=== PATIENT | female | born 1945 | race Caucasian/White ===

== ENCOUNTER 2022-12-16 21:02 | Emergency (ER) | payer MEDICARE, OTHER ==
[~2022-12-16] VITALS: Ht 170.2 cm; Wt 97.0 kg
[2022-12-16] MEDS ORDERED: LOSARTAN-HCTZ1 EAC2 PO (21:10)
[2022-12-16] MEDS ORDERED: ROSUVASTATIN CA20 MG PO ×2 (21:10→21:12)
[2022-12-16] MEDS ORDERED: CARVEDILOL12.5 MG PO (21:10)
[2022-12-16] MEDS ORDERED: VENLAFAXINE HC150 MG PO (21:10)
[2022-12-16] MEDS ORDERED: GABAPENTIN300 MG PO (21:11)
[2022-12-16 21:13] LABS: BASOPHILS 0.9 % (0-2); EOSINOPHILS 0.1 % (0-6); HEMATOCRIT 39.4 % (35.0-50.0); HEMOGLOBIN 13.3 g/dL (12.0-18.0); LYMPHOCYTES 32.5 % (24-44); MCH 29.4 (27-36); MCHC 33.7 g/dl (30-36); MCV 87.2 fl (81-99); MONOCYTES 16.7 % (0-12); NEUTROPHILS 49.8 % (39-80); PLATELET COUNT 243 K/uL (140-440); RBC 4.51 M/ul (4.3-5.7); RDW 12.6 (10.5-15.0)
[2022-12-16] MEDS ORDERED: ASPIRIN REGIMEN81 MG PO (21:13)
[2022-12-16 21:23] LABS: INR 0.98 (0.80-1.30); PROTIME 12.5 Sec (11.2-14.2)
[2022-12-16 21:31] LABS: ALBUMIN 4.2 g/dL (3.4-5.0); ANION GAP 14.2 (7-21); BILIRUBIN, TOTAL 0.6 ng/dL (0.2-1.0); BUN/CREATININE RATIO 12.63 (6.0-28.6); CALCIUM 9.5 mg/dL (8.5-10.1); CREATININE, SERUM 0.95 mg/dL (0.55-1.02); POTASSIUM 3.2 mmol/L (3.5-5.1); PROTEIN, TOTAL 8.4 g/dL (6.4-8.2)
[2022-12-16 22:10] LABS: INFLUENZA B NAA NEGATIVE (NEGATIVE); RESPIRATORY SYNCYTIAL VIR NAA NEGATIVE (NEGATIVE)
--- NOTE | 2022-12-17 06:27 | EKG ---
[facility] [address] [facility] [place], [place] [address] Signed Normal sinus rhythm Normal ECG When compared with ECG of 16-DEC-2022 20:57, (Unconfirmed) no longer bradycardic Confirmed by WALLACE TRACY MD ([id number]) on 12/17/2022 6:27:22 AM Electronically Signed By: WALLACE TRACY 12/17/22 0627 PATIENT NAME: ANGIE TANG IVONNE Electrocardiogram DATE OF : 49 PHYSICIAN: WALLACE TRACY REPORT #: [id number] REPORT IS CONFIDENTIAL AND NOT TO BE RELEASED WITHOUT AUTHORIZATION
--- NOTE | 2022-12-17 06:27 | EKG ---
[facility] [address] [facility] [place], [place] [address] Signed Sinus bradycardia Otherwise normal ECG No previous ECGs available Confirmed by WALLACE TRACY MD ([id number]) on 12/17/2022 6:26:47 AM Electronically Signed By: WALLACE TRACY 12/17/22 0627 PATIENT NAME: ANGIE TANG Electrocardiogram DATE OF : 49 PHYSICIAN: WALLACE TRACY REPORT #: [id number] REPORT IS CONFIDENTIAL AND NOT TO BE RELEASED WITHOUT AUTHORIZATION
[2022-12-17 11:55] VITALS: BP 150/89
== END 2022-12-17 11:56 | disposition short-term general hospital (02) ==
LOC: ED 21:02
PROVIDERS: Family Medicine
DX: I21.4 Non-ST elevation (NSTEMI) myocardial infarction (principal); Z79.82 Long term (current) use of aspirin; Z79.899 Other long term (current) drug therapy; I10 Essential (primary) hypertension; Z11.52 Encounter for screening for COVID-19
CPT/HCPCS: 36415; 70450; 71045; 80053; 83735; 84484; 85025; 85379; 85610; 85730; 87502; 93005; 93010; 96374; 96375; 96376; 99285-25; A9270; C9803; J0360; J0780; J1644; J1790; J2405; U0002

== ENCOUNTER 2024-05-08 05:59 | Day surgery (SDC) | payer MEDICARE, OTHER ==
[2024-05-02 13:22] VITALS: BP 161/81
[~2024-05-08] VITALS: Ht 170.2 cm; Wt 84.1 kg
[~2024-05-08 05:59] MED LIST: ASPIRIN REGIMEN81 MG PO; CARVEDILOL12.5 MG PO; GABAPENTIN300 MG PO; K-TAB ER20 MEQ PO; LACTATED RINGER'S 1,000 ML IV SCH; LOSARTAN-HCTZ1 EAC2 PO; MULTI VITAMIN1 EACH PO; ROSUVASTATIN CA20 MG PO; VENLAFAXINE HC150 MG PO
[2024-05-08 06:12] VITALS: BP 141/75
[2024-05-08] MEDS ORDERED: fentaNYL citrate 100 MCG/2 ML VIAL ONE (06:48)
[2024-05-08] MEDS ORDERED: propofoL 200 MG/20 ML VIAL ONE ×2 (06:48→06:49)
[2024-05-08] MEDS ORDERED: DEXAMETHASONE SOD PHOS 4 MG/ML VIAL ONE (06:48)
[2024-05-08] MEDS ORDERED: FAMOTIDINE 20 MG/ 2 ML VIAL ONE (06:48)
[2024-05-08] MEDS ORDERED: ondansetron HCL 4 MG/2 ML VIAL ONE (06:48)
[2024-05-08] MEDS ORDERED: KETOROLAC TROMETHAMINE 30 MG/ML VIAL ONE (06:48)
[2024-05-08] MEDS ORDERED: MIDAZOLAM HCL 2 MG/2 ML VIAL ONE (06:48)
[2024-05-08] MEDS ORDERED: LACTATED RINGER'S 1,000 ML IV ONE (06:48)
[2024-05-08] MEDS ORDERED: METOCLOPRAMIDE HCL 10 MG/2 ML SDV ONE (06:48)
[2024-05-08] MEDS ORDERED: IBLOOD GLUCOSE TEST STRIP 1 EA TEST VI PRN ×2 (07:00→07:15)
[2024-05-08] MEDS ORDERED: CEFAZOLIN SODIUM 2 GM/20 ML SYR IV SCH (07:00)
[2024-05-08] MEDS ORDERED: HEParin SOD (PORCINE) 5,000 UNIT/ML SDV SUB-Q SCH (07:00)
[2024-05-08] MEDS ORDERED: LIDOCAINE HCL 1% 5 ML SDV INJ ONE (07:00)
[2024-05-08] MEDS ORDERED: droPERidol 5 MG/2 ML VIAL IV PRN (07:15)
[2024-05-08] MEDS ORDERED: NALOXONE HCL 0.4 MG SYR IV PRN ×2 (07:15→08:45)
[2024-05-08] MEDS ORDERED: fentaNYL citrate 50 MCG/ML SDV IV PRN (07:15)
[2024-05-08] MEDS ORDERED: PROCHLORPERAZINE EDISYLATE 10 MG/2 ML VIAL IV PRN (07:15)
[2024-05-08] MEDS ORDERED: MORPHINE SULFATE 10 MG/ML VIAL IV PRN (07:15)
[2024-05-08] MEDS ORDERED: METOCLOPRAMIDE HCL 10 MG/2 ML SDV IV PRN (07:15)
[2024-05-08] MEDS ORDERED: ondansetron HCL 4 MG/2 ML VIAL IV PRN ×2 (07:15→08:45)
--- NOTE | 2024-05-08 07:46 | NUR ---
PT NOT AVAILABLE FOR VISIT. PROVIDED PRAYER.
[2024-05-08] MEDS ORDERED: IBUPROFEN600 MG PO (08:43)
[2024-05-08] MEDS ORDERED: ACETAMINOPHEN500 MG PO (08:43)
[2024-05-08] MEDS ORDERED: OXYCODON-ACETA1 EAC2 PO (08:43)
--- NOTE | 2024-05-08 08:43 | NUR ---
05/08/24 0843 Sheets,Kirstin 0872 PT ARRIVED TO PACU ON 6L VIA MASK, PT WAKES EASILY AND IS REORIENTED TO PACU. PT DENIES PAIN AND NAUSEA. 0831 O2 REMOVED, PT REPORTS BEING DROWSY AND RESTING WITH EYES CLOSED. 0834 O2 DECREASED TO 88-89% WHILE ASLEEP, 2L NC PLACED AND DEEP BREATHING ENCOURAGED. O2 INCREASED TO MID TO HIGH 90S. PT RESTING AND WAKES OFF AND ON. PT REPORTS PAIN 3/10 AND TOLERBALE AT THIS TIME.
[2024-05-08] MEDS ORDERED: ACETAMINOPHEN 500 MG TAB PO PRN (08:45)
[2024-05-08] MEDS ORDERED: OXYCODONE/APAP 7.5/325 TAB PO PRN (08:45)
[2024-05-08] MEDS ORDERED: IBUPROFEN 600 MG TAB PO PRN (08:45)
[2024-05-08 08:55] VITALS: BP 127/71
--- NOTE | 2024-05-08 09:06 | NUR ---
0855-PT BACK TO ROOM FROM PACU ON 2L VIA NC. RECEIVED REPORT FROM KORIN BRUNSON. PT IS AWAKE. RESP EVEN AND UNLABORED. RATES PAIN 2/10, DENIES NAUSEA. PT DRINKING WATER. NO OTHER NEEDS AT THIS TIME. CALL LIGHT WITHIN REACH. 0905-TITRATED O2 OFF. O2 SATS 98-99% ON RA. CALL LIGHT WITHIN REACH.
[2024-05-08 09:54] VITALS: BP 124/82
--- NOTE | 2024-05-08 10:16 | NUR ---
0954-PT AWAKE. RESP EVEN AND UNLABOARED. RATES PAIN /. DENIES NAUSEA. PT IS READY TO GO HOME. 0957-PT GETTING DRESSED. CALL LIGTH WITHIN REACH. 1000-PT AMBULATES TO RESTROOM. GAIT STEADY AND TOLERATED WELL. PT VOIDS. 1005-PT BACK TO ROOM.
--- NOTE | 2024-05-08 10:17 | NUR ---
1010-WENT OVER DISHCARGE INSTRUCTIONS WITH PT. WENT OVER POSTOP MEDICATION. ALL QUESTIONS ANSWERED. WHEELCHAIR RIDE PROVIDED TO FRONT OF HOSPITAL WHERE DAUGHTER WAS WAITING WITH THE CAR.
--- NOTE | 2024-05-08 17:24 | OR ---
[facility] [address] [place], [place] [address] Signed DATE OF OPERATION: 05/08/2024 SURGEON: Joslyn Kenyon MD PREOPERATIVE DIAGNOSIS: Right lower outer mammographic abnormality; radial scar on biopsy. POSTOPERATIVE DIAGNOSIS: Right lower outer mammographic abnormality; radial scar on biopsy. PROCEDURE: Excision of right breast tissue, right lower outer breast with KATHARINA entry level manufacturing engineer localization. ANESTHESIA: General LMA; Joslyn Meza CRNA and local 10 mL of 0.25% Marcaine with epinephrine. INDICATION: This 79-year-old white woman is a patient of STEVE Oliveros. She was noted to have an abnormality on mammogram in the outer lower aspect of the right breast, which was lobulated. The lesion was 0.8 cm in size. An ultrasound-guided biopsy was performed on March 01, 2024, showing benign findings of usual ductal hyperplasia and a radial sclerosing lesion and fibrocystic changes. She has no palpable mass but does have family history of breast cancer in her mother. She is admitted at this time to undergo right breast biopsy by KATHARINA entry level manufacturing engineer localization, which is a standard approach for those with the radial scar diagnosis on the possibility of associated malignancy. The risk of bleeding, infection, cosmetic deformity, need for additional treatment (extensively explained already) were reviewed in detail. She understands and wished to proceed. FINDINGS: There was bruising in the outer aspect of the right breast. There remained no palpable mass. Good signal with the KATHARINA entry level manufacturing engineer probe was noted. A circumareolar incision was used to provide optimal cosmesis. Excision of the mass proceeded without difficulty and the specimen radiograph confirmed the KATHARINA entry level manufacturing engineer implement and localizing clip to be in the center portion of the specimen. DESCRIPTION OF PROCEDURE: The patient was brought to the operating room and given a general LMA type anesthetic. The KATHARINA entry level manufacturing engineer implement had been localized in the preop area assuring good function of the machine. After satisfactory general LMA anesthesia, breast was prepared with chlorhexidine based solution and draped sterilely. Application of the KATHARINA entry level manufacturing engineer probe Electronically Signed By: JOSLYN KENYON MD 05/08/24 1724 PATIENT NAME: ANGIE TANG OPERATIVE REPORT DATE OF : 49 REPORT #: [id number] PHYSICIAN: JOSLYN KENYON MD PCP: CALVIN QUARLES REPORT IS CONFIDENTIAL AND NOT TO BE RELEASED WITHOUT AUTHORIZATION [facility] [address] [place] [address] Signed to the breast showed its maximal uptake approximately 2 cm from the areolar margin. So as to preserve cosmesis, a circumareolar incision was made in that area. Dissection was carried through the dermis with electrocautery after incision with a 15 blade. A flap was elevated inferior and lateral and using the KATHARINA entry level manufacturing engineer for localization. The appropriate breast parenchyma was identified more fully. Electrocautery was used to excise it widely. Once excised it was marked with a short stitch superior and a long stitch lateral and passed for specimen radiograph. Radiograph confirmed the localizing implement within the center portion of the excised breast tissue as was the tumor marker itself. The wound was closed in layers of 2-0 Vicryl and a running subcuticular 3-0 Vicryl for the skin after application of 10 mL of 0.25% Marcaine with epinephrine. Steri-Strips were applied as was an Acticoat dressing. The patient was ultimately extubated and transferred to recovery room in good condition having suffered no complications. Sponge, needle, and instrument counts were reported as correct x3. Joslyn Kenyon MD /YAYOL /[id number] cc: STEVE Oliveros Copies: CALVIN QUARLES ~ Electronically Signed By: JOSLYN KENYON MD 05/08/24 1724 PATIENT NAME: ANGIE TANG OPERATIVE REPORT DATE OF : 49 REPORT #: [id number] PHYSICIAN: JOSLYN KENYON MD PCP: CALVIN QUARLES REPORT IS CONFIDENTIAL AND NOT TO BE RELEASED WITHOUT AUTHORIZATION
--- NOTE | 2024-05-09 19:44 | EKG ---
[facility] [address] [facility] [place], [place] [address] Signed Normal sinus rhythm Normal ECG When compared with ECG of 17-DEC-2022 00:04, No significant change was found Confirmed by Merrick Galvan MD ([id number]) on 05/09/2024 7:44:02 PM Electronically Signed By: MERRICK GALVAN MD 05/09/241943 PATIENT NAME: ANGIE TANG Electrocardiogram DATE OF : 49 PHYSICIAN: MERRICK GALVAN MD REPORT #: [id number] REPORT IS CONFIDENTIAL AND NOT TO BE RELEASED WITHOUT AUTHORIZATION
--- NOTE | 2024-05-15 17:39 | PATH ---
[facility] [address] [place], [place] [address] Signed THIS IS AN ADDENDUM REPORT SPECIMEN(S): A RIGHT BREAST TISSUE SPECIMEN SOURCE: A. RIGHT BREAST TISSUE CLINICAL HISTORY: Abnormal breast tissue, right; radial scar of right breast. 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 See synoptic report INVASIVE CARCINOMA OF THE BREAST: Resection Applies To: A SPECIMEN Procedure: Excision (less than total mastectomy) Specimen Laterality: Right TUMOR Tumor Site: Not specified Histologic Type: Invasive carcinoma of no special type (ductal) Glandular (Acinar) / Tubular Differentiation: Score 1 Nuclear Pleomorphism: Score 1 Mitotic Rate: Score 1 Overall Grade: Grade 1 (scores of 3, 4 or 5) Tumor Size: Microinvasion only (less than or equal to 1 mm) Ductal Carcinoma In Situ (DCIS): Present Architectural Patterns: Cribriform, Papillary Nuclear Grade: Grade I (low) Lymphatic and / or Vascular Invasion: Not identified Dermal Lymphatic and / or Vascular Invasion: Not identified Microcalcifications: Present in DCIS, Present in non-neoplastic tissue Treatment Effect in the Breast: No known presurgical therapy MARGINS Margin Status for Invasive Carcinoma: All margins negative for invasive carcinoma Distance from Invasive Carcinoma to Closest Margin: 8 mm Closest Margin(s) to Invasive Carcinoma: Anterior Margin Status for DCIS: All margins negative for DCIS PATIENT NAME: ANGIE TANG PATHOLOGY DATE OF : 49 REPORT #: [id number] PHYSICIAN: HUSSEIN LÓPEZ PCP: CALVIN QUARLES REPORT IS CONFIDENTIAL AND NOT TO BE RELEASED WITHOUT AUTHORIZATION [facility] [address] [place], [place] [address] Signed Distance from DCIS to Closest Margin: 1 mm Closest Margin(s) to DCIS: Anterior REGIONAL LYMPH NODES Regional Lymph Node Status: Not applicable (no regional lymph nodes submitted or found) pTNM CLASSIFICATION (AJCC 8th Edition) pT Category: pT1mi pN Category: pN not assigned (no nodes submitted or found) ADDITIONAL FINDINGS Additional Findings: - 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 - Usual ductal hyperplasia. - Fibrocystic changes. Ancillary studies: Pending ER/AZ and HER2/ghanshyam by IHC COMMENT: As part of our quality control manager program, this case is reviewed by another staff member. NA MICROSCOPIC EXAMINATION: Histologic sections of all submitted blocks are examined by light microscopy. These findings, together with the gross examination, support the pathologic diagnosis. Immunohistochemical stains are performed (with valid controls) and show the following results: - SMMHC (blocks A13): Highlights myoepithelial layer around benign glands and areas of DCIS, negative in area of invasive carcinoma. - CK5/CK6 /multiplex stain (blocks A7, A8, A11, A13): Highlights epithelium, negative in areas of DCIS. - ER (blocks A8, A11, A13): Strong staining in areas of DCIS. The staining pattern supports the diagnosis. GROSS DESCRIPTION: The specimen, labeled and designated "Chrissy, S, " and designated on the requisition "right breast tissue," is received in formalin and consists of 22 gram oriented portion of yellow-porter fibroadipose tissue that is 6.6 x 4.3 x 2.1 cm. A short suture is present and identifies the superior margin; a long suture identifies the lateral margin. The specimen is inked as follows: superior - blue; inferior - green; medial - red; lateral - orange; anterior - yellow; and PATIENT NAME: ANGIE TANG PATHOLOGY DATE OF : 49 REPORT #: [id number] PHYSICIAN: HUSSEIN LÓPEZ PCP: CALVIN QUARLES REPORT IS CONFIDENTIAL AND NOT TO BE RELEASED WITHOUT AUTHORIZATION [facility] [address] [place], [place] [address] Signed posterior - black. The specimen is serially sectioned from medial to lateral into 13 slices revealing a metallic commercial insurance underwriter detector and biopsy clip in slices six and seven surrounded by pink-white rubbery fibrous tissue. Present in slices 9-11 is a pink-porter white firm indurated ill-defined area that is 1.2 x 0.8 x 0.7 cm. The indurated area is from the clips by slice eight and is 0.2 cm from the anterior soft tissue margin, 0.9 cm from the posterior soft tissue margin, 1.0 cm from the superior soft tissue margin, 1.2 cm from the inferior soft tissue margin, 2.3 cm from the medial soft tissue margin, and 1.1 cm from the lateral soft tissue margin. Approximately 90% of the remaining specimen is a yellow-porter greasy adipose tissue and 10% is a white-porter rubbery fibrous tissue. A discrete mass lesion is not gross identified. Groutman sections are submitted in 15 cassettes. 05/09/2024: A coil biopsy clip was located in cassette A6 during microtomy. Cassette Summary: (A1-A2) slice one, medial soft tissue resection margin, perpendicular (A3-A4) slice six with commercial insurance underwriter detector (A5-A6) slice seven with biopsy clip (A7-A8) slice eight (A9-A10) slice nine with area of induration (A11-A12) slice 10 with area of induration (A13-A14) slice 11 with area of induration (A15) slice 13, lateral soft tissue resection margin, perpendicular Time of collection: 8:05 AM May 08, 2024. Time into formalin: 8:14 AM May 08, 2024. Processor load time: 9 AM May 09, 2024. Ischemic time: 9 minutes Total fixation time in formalin: 24 hours 46 minutes The ASCO/CAP guidelines related to HER2 and hormone receptor testing in breast specimens have been met and the specimen has been placed in formalin within one hour and fixed in 10% neutral buffered formalin for 6 to 72 hours. FB (under the direct supervision of a pathologist) The Gross Description was prepared using a voice recognition system. The report was reviewed for accuracy; however, sound-alike word errors, addition and/or deletions may occur. If there is any question about this report, please contact Client Services. ADDITIONAL NOTES: PATIENT NAME: ANGIE TANG PATHOLOGY DATE OF : 49 REPORT #: [id number] PHYSICIAN: HUSSEIN LÓPEZ PCP: CALVIN QUARLES REPORT IS CONFIDENTIAL AND NOT TO BE RELEASED WITHOUT AUTHORIZATION [address] [address] Signed Immunohistochemical and/or in situ hybridization studies if performed in this case included appropriate positive controls that reacted as expected. This test was developed and its performance characteristics determined by [facility]. It has not been cleared or approved by the U.S. Food and Drug Administration. The FDA has determined that such clearance or approval is not necessary. This test is used for clinical purposes. It should not be regarded as investigational or for research. [facility] is certified under the Clinical Laboratory Improvement Amendments of 1988 (CLIA) as qualified to perform high complexity clinical laboratory testing. PERFORMING LABORATORY: Technical component was performed by [facility], [address] [place] [address] (CLIA# [id number]). Professional interpretation was performed by [facility] [place], [address] [place] [address] (CLIA#: [id number]). ADDITIONAL NOTES: Immunohistochemical and/or in situ hybridization studies if performed in this case included appropriate positive controls that reacted as expected. This test was developed and its performance characteristics determined by [facility]. It has not been cleared or approved by the U.S. Food and Drug Administration. The FDA has determined that such clearance or approval is not necessary. This test is used for clinical purposes. It should not be regarded as investigational or for research. [facility] is certified under the Clinical Laboratory Improvement Amendments of 1988 (CLIA) as qualified to perform high complexity clinical laboratory testing. Professional interpretation was performed by [facility], [address] [place] [address] (CLIA#: [id number]). REASON FOR ADDENDUM: To add additional tests results ADDENDUM PATHOLOGIC DIAGNOSIS: Breast Biomarker Reporting Template Applies To: A Test(s) Performed: Estrogen Receptor (ER) Status: Positive (greater than 10% of cells demonstrate nuclear positivity) Percentage of Cells with Nuclear Positivity: 91-100% PATIENT NAME: ANGIE TANG PATHOLOGY DATE OF : 49 REPORT #: [id number] PHYSICIAN: HUSSEIN PATHOLOGY PCP: CALVIN QUARLES REPORT IS CONFIDENTIAL AND NOT TO BE RELEASED WITHOUT AUTHORIZATION [facility] [address] [place], [place] [address] Signed Average Intensity of Staining: Strong Progesterone Receptor (PgR) Status: Positive Percentage of Cells with Nuclear Positivity: 91-100% Average Intensity of Staining: Strong HER2 by Immunohistochemistry: Negative (Score 1+) Cold Ischemia and Fixation Times: Meet requirements specified in latest version of the ASCO / CAP Guidelines Cold Ischemia Time (minutes): 9 min Fixation Time (hours): 24.46 hours Testing Performed on Block Number(s): A13 METHODS Fixative: Formalin NA Diagnostician: Bethel Costa MD Pathologist Electronically Signed 05/15/2024 Copies: ~ PATIENT NAME: ANGIE TANG PATHOLOGY DATE OF : 49 REPORT #: [id number] PHYSICIAN: HUSSEIN PATHOLOGY PCP: CALVIN QUARLES REPORT IS CONFIDENTIAL AND NOT TO BE RELEASED WITHOUT AUTHORIZATION
[2024-05-23] MEDS ORDERED: AMLODIPINE BES2.5 MG PO (14:18)
== END 2024-05-08 10:10 | disposition home or self-care (01) ==
LOC: DS 05:59
PROVIDERS: ATTEND Surgery
PROC: 0HB5XZZ Excision of Chest Skin, External Approach (ICD-10-PCS; principal; 2024-05-08 07:30)
DX: C50.511 Malignant neoplasm of lower-outer quadrant of right female breast (principal); N64.89 Other specified disorders of breast; I10 Essential (primary) hypertension; E78.5 Hyperlipidemia, unspecified; Z88.0 Allergy status to penicillin; Z79.899 Other long term (current) drug therapy
CPT/HCPCS: 00400; 88307; 88341; 88342; 88360; 93005; 93010; J0690; J1100; J1644; J1885; J2250; J2405; J2704; J2765; J3010; J7121

== ENCOUNTER 2024-05-24 11:54 | Day surgery (SDC) | payer MEDICARE, MEDICAID ==
[~2024-05-24] VITALS: Ht 170.2 cm; Wt 86.2 kg
[~2024-05-24 11:54] MED LIST changes: +ACETAMINOPHEN500 MG PO; +AMLODIPINE BES2.5 MG PO; +IBLOOD GLUCOSE TEST STRIP 1 EA TEST VI PRN; +IBUPROFEN600 MG PO; +LIDOCAINE HCL 1% 5 ML SDV INJ ONE; +MIDAZOLAM HCL 5 MG/5 ML VIAL IV PRN; +OXYCODON-ACETA1 EAC2 PO; +fentaNYL citrate 100 MCG/2 ML VIAL IV PRN
[2024-05-24 12:22] VITALS: BP 164/82
[2024-05-24] MEDS ORDERED: fentaNYL citrate 100 MCG/2 ML VIAL ONE (14:01)
[2024-05-24] MEDS ORDERED: MIDAZOLAM HCL 5 MG/5 ML VIAL ONE (14:01)
[2024-05-24 14:54] VITALS: BP 148/99
--- NOTE | 2024-05-24 15:43 | NUR ---
05/24/24 1543 Kirstin Sutton 1433 PT ARRIVED TO PACU ON 2L VIA NC, PT WAKES EASILY AND DENIES CONCERNS. VSS. 1443 PT ASLEEP AND MD AT BEDSIDE AND PT WAKES EASILY TO VERBAL STIMULI. 1446 HOB INCREASED AND PT SIPPING SODA. 1505 DC INSTRUCTIONS GIVEN, PT DRESSED HERSELF AND DAUGHTER CALLED FOR RIDE. PT DC WITH PAPERWORK AND ALL QUESTIONS ANSWERED.
--- NOTE | 2024-05-25 12:48 | OR ---
[facility] [address] [place], [place] [address] Signed DATE OF OPERATION: 05/24/2024 SURGEON: Joslyn Kenyon MD PREOPERATIVE DIAGNOSIS: Family history of colon cancer (father). POSTOPERATIVE DIAGNOSIS: Extensive sigmoid and left-sided diverticulosis and small polyp, left colon. PROCEDURE: Total colonoscopy to cecum with cold snare polypectomy x1. ANESTHESIA: Intravenous sedation, fentanyl 100 mcg and Versed 5 mg. INDICATION: This 79-year-old white woman is a patient of STEVE Oliveros. She has family history of colon cancer in her father and last underwent colonoscopy 11 years ago. She has no current symptoms of bleeding, diarrhea, or constipation. The patient recently underwent excision of ductal hyperplasia radial sclerosing lesion by ky for which the final pathology is pending and has recovered fully from that. She is now to undergo screening colonoscopy based on her family history of father with colon cancer. She understands the risk of bleeding, infection, and perforation related to colonoscopy and wished to proceed. FINDINGS: The prep was good. Complete colonoscopy was undertaken of the cecum with full intubation of the cecum. She had numerous diverticula of the sigmoid and left colon. Scattered diverticula elsewhere. There was a small sessile polyp in the left colon, probably 5 mm in size, which was excised with cold snare technique. It is uncertain if it was truly retrieved. The direct retrieval was not successful and it was likely removed from the filter device. DESCRIPTION OF PROCEDURE: The patient was brought to the endoscopy suite and placed in lateral decubitus position, given intravenous sedation to the point of slurred speech and nystagmus. Digital rectal examination was normal. Full cardiopulmonary monitoring was maintained. Digital rectal examination showed no sign of anorectal abnormality. Electronically Signed By: JOSLYN KENYON MD 05/25/24 1248 PATIENT NAME: ANGIE TANG OPERATIVE REPORT DATE OF : 49 REPORT #: [id number] PHYSICIAN: JOSLYN KENYON MD PCP: CALVIN FARRELL REPORT IS CONFIDENTIAL AND NOT TO BE RELEASED WITHOUT AUTHORIZATION [facility] [address] [place], [place] [address] Signed The Olympus video colonoscope was passed in the rectum and manipulated throughout the colon noting numerous diverticula. In the left colon, there was a small sessile polyp which was excised with cold snare technique. The specimen was not easily able to be removed as it fell off upon withdrawal of scope. Various attempts were made to find it once again. Irrigation was undertaken. It was suctioned free and ultimately was thought to have been retrieved from the filter device. The scope was advanced from the biopsy site ultimately to the cecum. The ileocecal valve and appendiceal orifice were normal. The scope was withdrawn from that site. Examination showed no sign of abnormality other than the diverticulosis and a left-sided biopsy site which was hemostatic. Further withdrawal showed no other abnormality other than internal hemorrhoids. The scope was removed and the patient taken to the recovery room in good condition. CONCLUDING DIAGNOSIS: Polyps x1 and diverticulosis. PLAN: Recommend repeat colonoscopy in 5 years and high-fiber diet generally. The patient will return to the ongoing care of primary provider, Calvin Frarell. Joslyn Kenyon MD JM/MODL /[id number] cc: STEVE Oliveros Copies: CALVIN FARRELL ~ Electronically Signed By: JOSLYN KENYON MD 05/25/24 1248 PATIENT NAME: ANGIE TANG OPERATIVE REPORT DATE OF : 49 REPORT #: [id number] PHYSICIAN: JOSLYN KENYON MD PCP: CALVIN FARRELL REPORT IS CONFIDENTIAL AND NOT TO BE RELEASED WITHOUT AUTHORIZATION
--- NOTE | 2024-05-28 14:32 | PATH ---
[facility] [address] [facility] [place], [place] [address] Signed SPECIMEN(S): A DESCENDING COLON POLYP SPECIMEN SOURCE: A. DESCENDING COLON POLYP CLINICAL HISTORY: Family history of colon cancer, diverticulosis, polyp FINAL PATHOLOGIC DIAGNOSIS: Colon, descending, polypectomy: - Tubular adenoma BRP MICROSCOPIC EXAMINATION: Histologic sections of all submitted blocks are examined by light microscopy. These findings, together with the gross examination, support the pathologic diagnosis. GROSS DESCRIPTION: The specimen, labeled and designated "Chrissy descending colon polyp," is received in formalin and consists of one porter soft tissue fragment, 0.3 cm. Entirely submitted in (A1). VB (under the direct supervision of a pathologist) The Gross Description was prepared using a voice recognition system. The report was reviewed for accuracy; however, sound-alike word errors, addition and/or deletions may occur. If there is any question about this report, please contact Client Services. ADDITIONAL NOTES: Immunohistochemical and/or in situ hybridization studies if performed in this case included appropriate positive controls that reacted as expected. This test was developed and its performance characteristics determined by [facility]. It has not been cleared or approved by the U.S. Food and Drug Administration. The FDA has determined that such clearance or approval is not necessary. This test is used for clinical purposes. It should not be regarded as investigational or for research. [facility] is certified under the Clinical Laboratory Improvement Amendments of 1988 (CLIA) as qualified to perform high complexity clinical laboratory testing. PATIENT NAME: ANGIE TANG PATHOLOGY DATE OF : 49 REPORT #: [id number] PHYSICIAN: HUSSEIN LÓPEZ PCP: CALVIN QUARLES REPORT IS CONFIDENTIAL AND NOT TO BE RELEASED WITHOUT AUTHORIZATION [facility] [address] [place], [place] [address] Signed PERFORMING LABORATORY: Technical component was performed by [facility], [address] [place] [id number] (CLIA# [id number]). Professional interpretation was performed by [facility] - [address] [address] (CLIA#: [id number]). Diagnostician: Harrison Randolph MD Pathologist Electronically Signed 05/28/2024 Copies: ~ PATIENT NAME: ANGIE TANG PATHOLOGY DATE OF : 49 REPORT #: [id number] PHYSICIAN: HUSSEIN LÓPEZ PCP: CALVIN QUARLES REPORT IS CONFIDENTIAL AND NOT TO BE RELEASED WITHOUT AUTHORIZATION
== END 2024-05-24 15:05 | disposition home or self-care (01) ==
LOC: DS 11:54
PROVIDERS: ATTEND Surgery
PROC: 0DBG8ZZ Excision of Left Large Intestine, Via Natural or Artificial Opening Endoscopic (ICD-10-PCS; principal; 2024-05-24 13:00)
DX: Z12.11 Encounter for screening for malignant neoplasm of colon (principal); D12.4 Benign neoplasm of descending colon; K57.30 Diverticulosis of large intestine without perforation or abscess without bleeding; N64.89 Other specified disorders of breast; I10 Essential (primary) hypertension; E78.5 Hyperlipidemia, unspecified; Z80.0 Family history of malignant neoplasm of digestive organs; Z79.82 Long term (current) use of aspirin; Z79.899 Other long term (current) drug therapy
CPT/HCPCS: 76098; 99153; G0500; J2250; J3010; J7121

== ENCOUNTER 2024-06-15 06:00 | Day surgery (SDC) | payer MEDICARE, MEDICAID ==
[~2024-06-15] VITALS: Ht 170.2 cm; Wt 86.4 kg
[~2024-06-15 06:00] MED LIST changes: -IBLOOD GLUCOSE TEST STRIP 1 EA TEST VI PRN; -LIDOCAINE HCL 1% 5 ML SDV INJ ONE; -MIDAZOLAM HCL 5 MG/5 ML VIAL IV PRN; -fentaNYL citrate 100 MCG/2 ML VIAL IV PRN
[2024-06-15 06:16] VITALS: BP 138/73
[2024-06-15] MEDS ORDERED: Methylene Blue 100 MG/10 ML SDV ONE (06:59)
[2024-06-15] MEDS ORDERED: CEFAZOLIN SODIUM 2 GM/20 ML SYR IV SCH (07:00)
[2024-06-15] MEDS ORDERED: LIDOCAINE HCL 1% 5 ML SDV INJ ONE (07:00)
[2024-06-15] MEDS ORDERED: IBLOOD GLUCOSE TEST STRIP 1 EA TEST VI PRN ×2 (07:00→09:15)
[2024-06-15] MEDS ORDERED: HEParin SOD (PORCINE) 5,000 UNIT/ML SDV SUB-Q SCH (07:00)
[2024-06-15] MEDS ORDERED: LIDOCAINE HCL 2% 5 ML SDV ONE (07:12)
[2024-06-15] MEDS ORDERED: propofoL 200 MG/20 ML VIAL ONE (07:12)
[2024-06-15] MEDS ORDERED: KETOROLAC TROMETHAMINE 30 MG/ML VIAL ONE (07:12)
[2024-06-15] MEDS ORDERED: fentaNYL citrate 100 MCG/2 ML VIAL ONE (07:12)
[2024-06-15] MEDS ORDERED: ondansetron HCL 4 MG/2 ML VIAL ONE (07:12)
[2024-06-15] MEDS ORDERED: DEXAMETHASONE SOD PHOS 4 MG/ML VIAL ONE (07:12)
[2024-06-15] MEDS ORDERED: ACETAMINOPHEN 1,000 MG/100 ML VIAL ONE (07:12)
[2024-06-15] MEDS ORDERED: ePHEDrine sulfate 50 MG/ML AMP ONE (08:45)
--- NOTE | 2024-06-15 08:49 | NUR ---
0729- PT OFF THE FLOOR WITH IMAGING. 0805- PT RETURNS TO DAY SURGERY ROOM 7 WITH IMAGING.
[2024-06-15] MEDS ORDERED: PROCHLORPERAZINE EDISYLATE 10 MG/2 ML VIAL IV PRN (09:15)
[2024-06-15] MEDS ORDERED: MORPHINE SULFATE 10 MG/ML VIAL IV PRN (09:15)
[2024-06-15] MEDS ORDERED: NALOXONE HCL 0.4 MG SYR IV PRN ×2 (09:15→10:15)
[2024-06-15] MEDS ORDERED: droPERidol 5 MG/2 ML VIAL IV PRN (09:15)
[2024-06-15] MEDS ORDERED: fentaNYL citrate 50 MCG/ML SDV IV PRN (09:15)
[2024-06-15] MEDS ORDERED: ondansetron HCL 4 MG/2 ML VIAL IV PRN (09:15)
--- NOTE | 2024-06-15 10:04 | NUR ---
06/15/24 1004 Alyce Resendez 3288-PT ARRIVES TO PACU VIA STRETCHER, RESTING SEMI FOWLERS, PT RESPONSIVE TO TACTILE STIMULI BUT RESTS W/ EYES CLOSED, VSS ON 6L VIA MASK, RR EVEN AND UNLABORED. 1000-PT AWAKENS ON OWN, TITRATED TO RA, VS REMAIN STABLE, PT DENIES PAIN OR NAUSEA.
[2024-06-15] MEDS ORDERED: MOTRIN IB200 MG PO (10:10)
[2024-06-15] MEDS ORDERED: TYLENOL EXTRA500 MG PO (10:10)
[2024-06-15] MEDS ORDERED: PERCOCET 7.5-31 EACH PO (10:11)
[2024-06-15] MEDS ORDERED: OXYCODONE/APAP 7.5/325 TAB PO PRN (10:15)
[2024-06-15] MEDS ORDERED: LACTATED RINGER'S 1,000 ML IV SCH (10:15)
[2024-06-15] MEDS ORDERED: IBUPROFEN 600 MG TAB PO PRN (10:15)
[2024-06-15] MEDS ORDERED: ACETAMINOPHEN 500 MG TAB PO PRN (10:15)
[2024-06-15 10:22] VITALS: BP 137/61
--- NOTE | 2024-06-15 10:28 | NUR ---
1020- PT ARRIVES FROM PACU. BEDSIDE REPORT RECIEVED. PT REPORTS NO NAUSEA AND VERY LITTLE PAIN. DISCHARGE CRITERIA DISCUSSED AND PT IS AGREEABLE. PT IS GIVEN HER GLASSES PER REQUEST. PT GIVEN WATER AND JELLO PER REQUEST. BED IS LOCKED IN THE LOWEST POSITION AND CALL LIGHT IN REACH.
[2024-06-15 11:21] VITALS: BP 131/66
--- NOTE | 2024-06-15 11:23 | NUR ---
1120- VITAL SIGNS OBTAINED. PT DENIES NAUSEA AND REPORTS THE PAIN "IS THERE, BUT TOLERABLE". SURGICAL SITE ASSESSED. PT WAS ABLE TO SIP ON WATER AND EAT JELLO. PT REPORTS MAYBE WANTING TO USE THE RESTROOM. NO QUESTIONS OR CONCERNS AT THIS TIME.
--- NOTE | 2024-06-15 12:13 | NUR ---
1135- PT UP AT THE SIDE OF THE BED. PT HAS STEADY AND EVEN GAIT TO THE RESTROOM. 1150- IV REMOVED. DISCHARGE CRITERIA IS MET. DISCHARGE PAPERWORK AND EDUCATION GONE OVER AND GIVEN TO PT WITH PRESCRIPTION. NO QUESTIONS OR CONCERNS, AND PT GETS DRESSED INDEPENDENTLY. PT HAS ALL BELONGINGS. PT IS DISCAHRGED FROM DAY SURGERY AND WHEELED OUT TO HER DAUGHTERS CAR. PT IS ABLE TO GET INTO VEHICLE INDEPENDENTLY.
[2024-06-17] MEDS ORDERED: SEVOFLURANE 250 ML BTL INH ONE (14:23)
--- NOTE | 2024-06-19 16:31 | PATH ---
[facility] [address] [facility] [place], [place] [address] Signed SPECIMEN(S): A RIGHT SENTINEL LYMPH NODE #1 SPECIMEN(S): B RIGHT SENTINEL LYMPH NODE #2 SPECIMEN(S): C ADDITIONAL RIGHT AXILLARY TISSUE SPECIMEN(S): D RIGHT SENTINEL LYMPH NODE #3 SPECIMEN SOURCE: A. RIGHT SENTINEL LYMPH NODE #1 B. RIGHT SENTINEL LYMPH NODE #2 C. ADDITIONAL RIGHT AXILLARY TISSUE D. RIGHT SENTINEL LYMPH NODE #3 CLINICAL HISTORY: Right breast cancer - intraductal. FINAL PATHOLOGIC DIAGNOSIS: A. Right sentinel lymph node #1: - One lymph node, negative for metastatic carcinoma (0/1). B. Right sentinel lymph node #2: - Three lymph nodes, negative for metastatic carcinoma (0/3). C. Additional right axillary tissue: - Benign soft tissue, negative for lymph node. D. Right sentinel lymph node #3: - One lymph node, negative for metastatic carcinoma (0/1). COMMENT: The sentinel lymph node tissue shows combined five lymph nodes negative for metastatic carcinoma corresponding to pathologic staging, (sn)pN0. As part of [facility] Quality Improvement Program, this case was reviewed by another member of our pathology staff. JVR:smn MICROSCOPIC EXAMINATION: Histologic sections of all submitted blocks are examined by light microscopy. These findings, together with the gross examination, support the pathologic diagnosis. GROSS DESCRIPTION: A. The specimen, labeled and designated "Chrissy, S," and designated on the requisition "sentinel lymph node #1," is received in formalin and consists of 4.3 x 3.5 x 1.8 cm portion of yellow-porter adipose tissue that upon sectioning reveals one possible lymph node with a blue PATIENT NAME: ANGIE TANG PATHOLOGY DATE OF : 49 REPORT #: [id number] PHYSICIAN: HUSSEIN PATHOLOGY PCP: CALVIN QUARLES REPORT IS CONFIDENTIAL AND NOT TO BE RELEASED WITHOUT AUTHORIZATION [facility] [address] [place], [place] [address] Signed dye discoloration that is 4.2 cm in greatest dimension. The lymph node is sectioned and entirely submitted in cassettes A1-A3. Only adipose tissue remains within the container. B. The specimen, labeled and designated "Chrissy, S," and designated on the requisition "sentinel lymph node #2-marked by kenyon," is received in formalin and consists of 4.8 x 4.0 x 1.9 cm portion of yellow-porter adipose tissue that upon dissection reveals three possible lymph nodes that measure up to 1.6 cm in greatest dimension. The largest has a black suture and is identified as the sentinel node #2 per the requisition. Lymph nodes are entirely submitted. Only adipose tissue remains within the container. Cassette Summary: (B1) two possible lymph nodes, submitted whole (B2) one possible lymph node, sectioned C. The specimen, labeled and designated "Chrissy, S," and designated on the requisition "additional right axillary tissue," is received in formalin and consists of 4.6 x 3.1 x 1.4 cm aggregate of yellow-porter adipose tissue that upon dissection reveals no lymph nodes grossly. The specimen is entirely submitted cassettes C1-C3. D. The specimen, labeled and designated "Chrissy, S," and designated on the requisition "sentinel lymph node #3," is received in formalin and consists of 2.5 x 1.6 x 0.9 cm portion of yellow-porter adipose tissue that upon dissection reveals one pink-red possible lymph node that is 0.7 cm in greatest dimension. The specimen is sectioned and entirely submitted in cassette D1. Only adipose tissue remains within the container. FB (under the direct supervision of a pathologist) The Gross Description was prepared using a voice recognition system. The report was reviewed for accuracy; however, sound-alike word errors, addition and/or deletions may occur. If there is any question about this report, please contact Client Services. PERFORMING LABORATORY: Technical component was performed by [facility], [address] [place] [id number] (CLIA# [id number]). Professional interpretation was performed by [facility], [address] [place] [id number] (CLIA#: [id number]). Diagnostician: Parish Carlos MD Pathologist PATIENT NAME: ANGIE TANG PATHOLOGY DATE OF : 49 REPORT #: [id number] PHYSICIAN: HUSSEIN LÓPEZ PCP: CALVIN QUARLES REPORT IS CONFIDENTIAL AND NOT TO BE RELEASED WITHOUT AUTHORIZATION [facility] [address] [place], [place] [address] Signed Electronically Signed 06/19/2024 Copies: ~ PATIENT NAME: ANGIE TANG PATHOLOGY DATE OF : 49 REPORT #: [id number] PHYSICIAN: HUSSEIN PATHOLOGY PCP: CALVIN QUARLES REPORT IS CONFIDENTIAL AND NOT TO BE RELEASED WITHOUT AUTHORIZATION
--- NOTE | 2024-06-27 09:54 | OR ---
[facility] [place] [facility] [address] [place], [place] [address] Signed DATE OF OPERATION: 06/15/2024 SURGEON: Joslyn Kenyon MD PREOPERATIVE DIAGNOSIS: Right breast carcinoma. POSTOPERATIVE DIAGNOSIS: Right breast carcinoma. PROCEDURES: 1. Injection of methylene blue for sentinel lymph node identification. 2. Right deep axillary sentinel lymph node biopsies. ANESTHESIA: General LMA, Leobardo Wisdom CRNA. INDICATION: This 79-year-old white woman is a patient of Calvin Farrell. She underwent excision of a lobulated mass in the right breast 2 cm from the nipple on March 01, 2024. The findings confirmed usual ductal hyperplasia and radial sclerosing lesion and fibrocystic changes. On the basis of the technique of biopsy and those findings, an image guided excision of the site was undertaken by me a few weeks ago with KATHARINA slip cover cutter technology. 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 The margins were all negative. I have recommended sentinel lymph node biopsy for complete staging. She has no clinically positive lymph nodes. She does have family history of breast cancer in her mother. She is admitted at this time to undergo right sentinel lymph node biopsy with methylene blue dye and radionuclide localization techniques. She understands the risk of bleeding, infection, need for additional treatment should malignancy be confirmed and three or more lymph nodes and wishes to proceed. FINDINGS: Uptake of blue dye was noted to the dominant sentinel lymph node and to a lesser extent the other two lymph nodes. Good radiotracer uptake was noted. Three sentinel lymph nodes were excised, though there was some additional tissue that may have additional lymph nodes. The lymph nodes were not clinically suspicious. She tolerated the procedure well. DESCRIPTION OF PROCEDURE: Electronically Signed By: JOSLYN KENYON MD 06/27/24 0954 PATIENT NAME: ANGIE TANG OPERATIVE REPORT DATE OF : 49 REPORT #: [id number] PHYSICIAN: JOSLYN KENYON MD PCP: CALVIN FARRELL REPORT IS CONFIDENTIAL AND NOT TO BE RELEASED WITHOUT AUTHORIZATION [facility] [place] [facility] [address] [place], [place] [address] Signed The patient was brought to the operating room, given a general LMA type anesthetic. 1 mL of methylene blue dye was injected in the subepithelial space. She had undergone radionuclide injection for sentinel lymph node identification earlier in the morning. After satisfactory anesthesia and injection of dye, the right chest wall and breast was prepared with chlorhexidine solution and draped sterilely. Using the C-Trak gamma probe interrogation of the right axilla showed an area of maximal uptake. A small transverse incision was made and using electrocautery and blunt dissection, the axillary tissue was examined. I did not see any lymphatic streaking with blue dye. Using more dominantly the C-Trak probe, the area of uptake was identified, somewhat superficial and inferior to the incision. With blunt dissection, obvious lymph node was identified with avid uptake of blue dye and radionuclide. The lymph node was certainly larger than 1 cm, it was excised completely. Additional dissection was undertaken in the axilla with guidance using the C-Trak probe and two other lymph nodes were removed, both of them small, but with avid uptake of radionuclide. A few clips were applied as necessary for hemostasis. Irrigation undertaken with sterile water and any other areas of bleeding secured with electrocautery. Annita was applied to the depths of the axilla. The wound was closed in layers with interrupted 2-0 Vicryl and running subcuticular 3-0 Vicryl for the skin. Steri-Strips were applied as was an Acticoat dressing. She tolerated procedure well. Blood loss was less than 10 mL. Sponge, needle, and instrument counts reported as correct x3. MD KRAIG Deluna/MODL /[id number] cc: STEVE Oliveros Copies: CALVIN FARRELL ~ Electronically Signed By: JOSLYN KENYON MD 06/27/24 0954 PATIENT NAME: ANGIE TANG OPERATIVE REPORT DATE OF : 49 REPORT #: [id number] PHYSICIAN: JOSLYN KENYON MD PCP: CALVIN FARRELL REPORT IS CONFIDENTIAL AND NOT TO BE RELEASED WITHOUT AUTHORIZATION
== END 2024-06-15 11:50 | disposition home or self-care (01) ==
LOC: DS 06:00
PROVIDERS: ATTEND Surgery
PROC: 07B50ZX Excision of Right Axillary Lymphatic, Open Approach, Diagnostic (ICD-10-PCS; principal; 2024-06-15 08:20)
DX: C50.511 Malignant neoplasm of lower-outer quadrant of right female breast (principal); I10 Essential (primary) hypertension; E78.5 Hyperlipidemia, unspecified; K21.9 Gastro-esophageal reflux disease without esophagitis; Z88.0 Allergy status to penicillin; Z79.82 Long term (current) use of aspirin; Z79.899 Other long term (current) drug therapy
CPT/HCPCS: 01610; 88304; 88305; 88307; J0131; J0690; J1100; J1644; J1885; J2003; J2405; J2704; J3010; J3490; J7121